=== PATIENT | female | born 1965 | race Asian ===

== ENCOUNTER 2016-11-10 17:56 | Emergency (ER) | payer OTHER ==
[2016-11-10 18:04] VITALS: BP 114/97; BMI 31.8
[2016-11-10 19:38] VITALS: PULSE 108; TEMP 98.4
[2016-11-10] MEDS ORDERED: ACETAMINOPHEN 325 MG TABLET (FP) ONE (19:57)
[2016-11-10] MEDS ORDERED: ACETAMINOPHEN 500 MG TABLET (FP) PO ONE (19:58)
[2016-11-10 21:08] LABS: MCH 26.1 pg (25.7-33.7); MCHC 33.3 g/dl (32.0-36.0); MEAN CELL VOLUME 78.3 fl (80-96); MEAN PLT VOLUME 8.3 fl (7.5-11.1); PLATELET COUNT 235 K/MM3 (134-434); RDW 16.4 % (11.6-15.6); WHITE BLOOD COUNT 5.5 K/mm3 (4.0-10.0)
[2016-11-10 21:26] LABS: URINE APPEARANCE SLCLOUDY; URINE BILIRUBIN NEGATIVE (NEGATIVE); URINE BLOOD NEGATIVE (NEGATIVE); URINE COLOR YELLOW; URINE GLUCOSE (UA) NEGATIVE (NEGATIVE); URINE KETONE NEGATIVE (NEGATIVE); URINE NITRITE NEGATIVE (NEGATIVE); URINE UROBILINOGEN NEGATIVE E.U./dl (0.2-1.0)
[2016-11-10 21:36] LABS: URINE LEUK ESTERASE 1+ (NEGATIVE); URINE PROTEIN 1+ (NEGATIVE)
[2016-11-10 21:38] LABS: URINE BACTERIA RARE /hpf (NONE SEEN); URINE HYALINE CAST 1 /lpf; URINE MUCUS MODERATE; URINE RBC 3 /hpf (0-3); URINE WBC 23 /hpf (3-5)
[2016-11-10 21:47] LABS: ALBUMIN 3.9 g/dl (3.4-5.0); ALK PHOS 104 U/L (45-117); ANION GAP 11 (8-16); BILIRUBIN,TOTAL 0.5 mg/dL (0.2-1.0); CALCIUM 9.3 mg/dL (8.5-10.1); CO2 26 mmol/L (21-32); CREATININE 0.8 mg/dL (0.55-1.02); GLUCOSE,RANDOM 135 mg/dL (74-106); SGOT/AST 21 U/L (15-37); SGPT/ALT 32 U/L (12-78); TOT PROT 7.8 g/dl (6.4-8.2)
--- NOTE | 2016-11-10 22:32 | PDOC ---
History of Present Illness - General Chief Complaint: Weakness Stated Complaint: PCP SENT/FEVER/WEAKNESS Time Seen by Provider: 11/10/16 20:32 History Source: Patient Exam Limitations: No Limitations - History of Present Illness Initial Comments: 11/10/16 22:27 CC fever; body aches with cough Timing/Duration: getting worse Severity: mild Modifying Factors: improves with: cold therapy Associated Symptoms: reports: cough, malaise. denies: nausea/vomiting Past History - Past Medical History Allergies/Adverse Reactions: Allergies Allergy/AdvReac Type Severity Reaction Status Date / Time No Known Allergies Allergy Verified 11/10/16 18:04 - Psycho/Social/Smoking Cessation Hx Suicidal Ideation: No Smoking History: Never smoked Information on smoking cessation initiated: No Review of Systems - Review of Systems Constitutional: Yes: Symptoms Reported, Chills, Malaise. No: Fever HEENTM: No: Symptoms Reported Respiratory: Yes: Symptoms reported, Cough Cardiac (ROS): Yes: Symptoms Reported ABD/GI: No: Symptoms Reported, Diarrhea, Nausea, Vomiting : Yes: Dysuria, Frequency. No: Hematuria Integumentary: No: Symptoms Reported *Physical Exam - Vital Signs Last Vital Signs Temp Pulse Resp BP Pulse Ox 98.4 F 108 H 20 114/97 97 11/10/16 19:36 11/10/16 19:36 11/10/16 19:36 11/10/16 17:57 11/10/16 19:36 - Physical Exam General Appearance: Yes: Appropriately Dressed. No: Apparent Distress HEENT: positive: TMs Normal, Pharynx Normal, Nasal Congestion, Rhinorrhea. negative: TM Bulging Neck: positive: Supple. negative: Tender, Rigid Respiratory/Chest: positive: Lungs Clear, Normal Breath Sounds Cardiovascular: negative: Regular Rhythm, Regular Rate Female Pelvic Exam: positive: normal external exam Gastrointestinal/Abdominal: positive: Normal Bowel Sounds. negative: Tender ED Treatment Course - LABORATORY CBC & Chemistry Diagram: 11/10/16 21:00 11/10/16 21:00 - ADDITIONAL ORDERS Additional order review: Laboratory Results 11/10/16 11/10/16 21:10 21:00 Sodium 138 Potassium 3.8 Chloride 101 Carbon Dioxide 26 Anion Gap 11 BUN 7 Creatinine 0.8 Creat Clearance w eGFR > 60 Random Glucose 135 H Calcium 9.3 Total Bilirubin 0.5 AST 21 ALT 32 Alkaline Phosphatase 104 Total Protein 7.8 Albumin 3.9 Urine Color Yellow Urine Appearance Slcloudy Urine pH 5.0 Ur Specific [place] 1.020 Urine Protein 1+ H Urine Glucose (UA) Negative Urine Ketones Negative Urine Blood Negative Urine Nitrite Negative Urine Bilirubin Negative Urine Urobilinogen Negative Ur Leukocyte Esterase 1+ H Urine RBC 3 Urine WBC 23 Ur Epithelial Cells Moderate Urine Bacteria Rare Hyaline Casts 1 Urine Mucus Moderate Urine HCG, Qual Negative 11/10/16 20:45 Group A Strep Rapid Antigen - Final Throat 11/10/16 21:00 RBC 5.20 MCV 78.3 L MCHC 33.3 RDW 16.4 H MPV 8.3 - RADIOLOGY Radiology Studies Ordered: Category Date Time Status CHEST PA & LAT [RAD] Stat Radiology 11/10/16 20:38 Taken - Medications Given in the ED: ED Medications Discontinued Medications Generic Name Dose Route Start Last Admin Trade Name Freq PRN Reason Stop Dose Admin Acetaminophen 975 mg 11/10/16 19:58 11/10/16 19:59 Tylenol - PO 11/10/16 19:59 975 mg NOW ONE Administration Medical Decision Making - Medical Decision Making 11/10/16 22:28 pt has allergies wiill treat; ua= infection will treat; refer to [facility] for elevated glucose *DC/Admit/Observation/Transfer Diagnosis at time of Disposition: Hyperglycemia Urinary tract infection Qualifiers: Urinary tract infection type: site unspecified Hematuria presence: without hematuria Qualified Code(s): N39.0 - Urinary tract infection, site not specified Seasonal allergic rhinitis Qualifiers: Allergic rhinitis trigger: unspecified Qualified Code(s): J30.2 - Other seasonal allergic rhinitis - Discharge Dispostion Disposition: HOME Condition at time of disposition: Stable Admit: No - Patient Instructions Additional Instructions: please see Dr Orr this week for elevate glucose - Post Discharge Activity Work/School Note: Back to Work
== END 2016-11-10 22:53 | disposition home or self-care (01) ==
LOC: JERFT 17:56
DX: N39.0 Urinary tract infection, site not specified (principal); J30.2 Other seasonal allergic rhinitis; R73.9 Hyperglycemia, unspecified
CPT/HCPCS: 36415; 71020-TC; 80053; 81003; 81015; 84703; 85027; 87070; 87430; 99281-25

== ENCOUNTER → 2017-11-17 | Emergency (ER) | payer OTHER ==
--- NOTE | 2017-11-17 21:31 | PDOC ---
Rapid Medical Evaluation Chief Complaint: Pain Time Seen by Provider: 11/17/17 21:28 Medical Evaluation: Allergies Allergy/AdvReac Type Severity Reaction Status Date / Time No Known Allergies Allergy Verified 11/17/17 21:29 11/17/17 21:29 I have performed a brief in-person evaluation of this patient. The patient presents with a chief complaint of: left shoulder pain x 2-3 weeks, ecchymosis x 4 days, limited ROM, sent in by PCP Dominga Pertinent physical exam findings: ecchymosis to left shoulder, limited ROM I have ordered the following: labs, ultrasound, x-ray The patient will proceed to the ED for further evaluation. Discharge Disposition - Diagnosis Acute pain of left shoulder - Referrals - Patient Instructions - Post Discharge Activity
[2017-11-17 21:32] VITALS: BP 128/81; PULSE 98; TEMP 98.3; BMI 32.2
== END | disposition left against medical advice (07) ==
LOC: JER 20:55
DX: M25.512 Pain in left shoulder (principal)
CPT/HCPCS: 73030-TC-LT-FY; 93971; 99281-25

== ENCOUNTER 2022-04-07 04:02 | Day surgery (SDC) | payer OTHER ==
[2022-04-01 16:36] VITALS: BMI 31.8
[~2022-04-07 04:02] MED LIST: BUPIVACAINE HCL/PF 0.5% (5MG/ML) 10 ML VIAL IJ ONE; LIDOCAINE HCL 1%, 10 MG/ML (20ML VIAL) NR ONE
[2022-04-07] MEDS ORDERED: LIDOCAINE HCL 1%, 10 MG/ML (20ML VIAL) ONE (07:19)
[2022-04-07] MEDS ORDERED: BUPIVACAINE HCL/PF 0.5% (5MG/ML) 10 ML VIAL ONE (07:20)
[2022-04-07] MEDS ORDERED: PROPOFOL 20 ML ONE (07:55)
[2022-04-07] MEDS ORDERED: MIDAZOLAM HCL 2 MG/2 ML SINGLE DOSE VIAL ONE (07:56)
[2022-04-07] MEDS ORDERED: SUCCINYLCHOLINE CHLORIDE 200 MG/10 ML SYRINGE ONE (07:56)
[2022-04-07] MEDS ORDERED: ceFAZolin SODIUM 1 GM VIAL IVPB ONE (08:30)
[2022-04-07] MEDS ORDERED: BUPIVACAINE HCL/PF 0.5% (5MG/ML) 10 ML VIAL IJ ONE ×2 (08:38)
[2022-04-07] MEDS ORDERED: LIDOCAINE HCL 1%, 10 MG/ML (20ML VIAL) NR ONE ×2 (08:38)
[2022-04-07 12:25] VITALS: BP 134/96; PULSE 82; RESP 18; TEMP 97.9
== END 2022-04-07 11:30 | disposition home or self-care (01) ==
LOC: JASU-SURG 04:02
PROVIDERS: ATTEND Orthopaedic Surgery
PROC: 01N50ZZ Release Median Nerve, Open Approach (ICD-10-PCS; principal; 2022-04-07 08:00)
DX: G56.01 Carpal tunnel syndrome, right upper limb (principal); M65.831 Other synovitis and tenosynovitis, right forearm
CPT/HCPCS: 88304-TC